=== PATIENT | male | born 1985 | race African-American/Black ===

== ENCOUNTER 2021-09-09 20:40 | Emergency (ER) | payer SELFPAY ==
[~2021-09-09] VITALS: Ht 177.8 cm; Wt 85.2 kg
[2021-09-09 20:58] VITALS: BP 157/101
== END 2021-09-09 22:07 | disposition left against medical advice (07) ==
LOC: ER 20:40
DX: Z53.21 Procedure and treatment not carried out due to patient leaving prior to being seen by health care provider (principal)